=== PATIENT | female | born 1950 | race Caucasian/White ===

== ENCOUNTER 2017-10-25 11:39 | Emergency (ER) | payer MEDICARE, MEDICAID ==
[2017-10-25 12:50] LABS: BASOPHILS 0.3 % (0-2); EOSINOPHILS 0.9 % (0-7); HEMATOCRIT 35.4 % (36.0-48.0); HEMOGLOBIN 11.1 g/dL (12-16); IMMATURE GRANULOCYTES 0.3 % (0-5); LYMPHOCYTES 21.2 % (15-50); MCHC 31.4 g/dL (31.0-37.0); MCV 92.4 fL (80.0-100.0); MEAN PLATELET VOLUME 10.1 fL (7.4-10.4); MONOCYTES 5.7 % (2-11); NEUTROPHILS 71.6 % (40-80); PLATELET COUNT 189 10x3/uL (130-400); RBC 3.83 10x6/uL (4.00-5.40); RDW 13.1 % (11.5-14.5); WBC 3.5 10x3/uL (4.8-10.8)
[2017-10-25 13:18] LABS: ALBUMIN 3.8 g/dL (3.4-5.0); ALKALINE PHOSPHATASE 59 U/L (46-116); ALT (SGPT) 17 U/L (10-68); CALC OSMOLALITY 281 mosm/kg (275-300); CARBON DIOXIDE 30.5 mmol/L (21.0-32.0); CHLORIDE - SERUM 105 mmol/L (98-107); CREATININE - SERUM 0.6 mg/dL (0.6-1.3); GLUCOSE 103 mg/dL (74-106); POTASSIUM - SERUM 3.8 mmol/L (3.5-5.1); PROTEIN - SERUM 6.8 g/dL (6.4-8.2); SODIUM 142 mmol/L (136-145); UREA NITROGEN 10 mg/dL (7-18); eGFR NON AFRICAN AMERICAN > 90 mL/min (90-120)
[2017-10-25 13:29] LABS: CKMB 0.8 U/L (0.0-3.6); CREATINE KINASE 125 UL (21-215); TROPONIN-I 0.017 ng/mL (0.000-0.060)
== END 2017-10-25 17:49 | disposition left against medical advice (07) ==
LOC: D.ER 11:39
PROVIDERS: Emergency Medicine
DX: R07.9 Chest pain, unspecified (principal)